=== PATIENT | male | born 2000 | race Caucasian/White ===

== ENCOUNTER 2020-12-27 21:42 | Emergency (ER) | payer OTHER, SELFPAY ==
[2020-12-27 21:45] VITALS: BP 112/60; PULSE 67; RESP 16; TEMP 36.6; O2SAT 98
[2020-12-27 22:05] LABS: Basophils Percent Auto 0.3 % (0.2-1.2); Eosinophils Absolute Auto 0.2 K/mm3 (0-0.3); Eosinophils Percent Auto 2.2 % (0-4.4); Hematocrit 47.1 % (42.0-52.0); Hemoglobin 16.3 g/dL (14.0-18.0); Immature Granulocyte Absolute 0.02 K/mm3 (0.00-0.031); Immature Granulocyte Percent A 0.2 % (0-0.5); Lymphocytes Absolute Auto 1.74 K/mm3 (0.9-3.2); Lymphocytes Percent Auto 18.8 % (18.3-44.2); Mean Corpuscular HGB Conc 34.6 g/dl (32-36); Mean Corpuscular Hemoglobin 29.7 pg (26-34); Mean Corpuscular Volume 85.9 fl (80-100); Mean Platelet Volume 10.1 fl (7.4-10.4); Monocytes Absolute Auto 0.6 K/mm3 (0.1-0.6); Monocytes Percent Auto 6.6 % (2.6-8.5); Neutrophils Absolute Auto 6.7 K/mm3 (1.3-6.7); Neutrophils Percent Auto 71.9 % (45.5-73.1); Platelet Count Result 238 k/mm3 (150-375); Red Blood Count 5.48 M/mm3 (4.6-6.20); Red Cell Distribution Width 11.7 % (11.5-14.5); White Blood Count 9.3 K/mm3 (4.5-10.0)
[2020-12-27 22:16] LABS: Alanine Aminotransferase 23 U/L (4-50); Albumin Level 4.6 g/dL (3.5-5.1); Alkaline Phosphatase 59 U/L (38-126); Anion Gap 8 mmol/L (8-16); Aspartate Amino Transferase 27 U/L (17-59); Bilirubin,Total 0.8 mg/dL (0.2-1.3); Blood Urea Nitrogen 11 mg/dL (9-20); Calcium 9.4 mg/dL (8.4-10.2); Carbon Dioxide 30 mmol/L (22-30); Chloride 103 mmol/L (98-107); Estimated CRCL calculation 103 ml/min; Estimated Glomerular Filt Rate > 60; Glucose 92 mg/dL (75-110); Lipase 59 U/L (23-300); Potassium 3.8 mmol/L (3.4-5.0); Sodium 141 mmol/L (137-145)
[2020-12-27 23:54] LABS: Add Urine Microscopic? YES; Amorphous Sediment Urine Few; Appearance Urine Turbid (Clear); Bilirubin Urine Negative (Negative); Blood Urine Negative (Negative); Color Urine Amber (Yellow); Glucose Urine UA Negative (Negative); Ketones Urine Negative (Negative); Leukocyte Esterase Ur Negative LEU/UL (Negative); Mucus Urine Few /lpf; Nitrate Urine Negative (Negative); Protein Urine 1+ mg/dL (Negative); RBC Urine 0-2 /hpf (0-2); Specific Grav Ur 1.023 (1.001-1.035); WBC Urine 0-3 /hpf
--- NOTE | 2020-12-27 23:56 | ED.GENADULT ---
HPI - General Adult General Chief complaint: Abdominal Pain Stated complaint: abdominal pain Time Seen by Provider: 12/27/20 23:33 Source: patient History of Present Illness HPI narrative: Patient is a 20 y/o male complaining burning epigastric pain starting 4 days ago. He rates his pain as 8/10 when it occurs. His pain radiates to his pain. There is no alleviating or exacerbating factor. His pain is intermittent. He had some vomiting, but no diarrhea. Related Data Allergies Allergy/AdvReac Type Severity Reaction Status Date / Time amoxicillin Allergy Swelling Verified 12/27/20 21:47 of Lip/Tongue/Throat Review of Systems Constitutional: Constitutional: Denies chills, Denies fever(s), Denies headache(s) and Denies weakness Eyes: Eyes: Denies blurry vision ENT: Denies headache(s) and Denies neck pain Cardiovascular: Cardiovascular: Denies chest pain and Denies dyspnea Respiratory: Respiratory: Denies cough and Denies dyspnea Gastrointestinal: Gastrointestinal: Reports abdominal pain, Denies diarrhea, Reports nausea and Reports vomiting Genitourinary: Genitourinary: Denies hematuria and Denies dysuria Musculoskeletal: Musculoskeletal: Denies back pain and Denies neck pain Neurologic: Denies headache(s) and Denies weakness [facility] Social History Social History Gender identity (if verbalized by the patient): Male Exam Const: General: no acute distress and well developed Orientation/consciousness: oriented to person, oriented to place, oriented to time and patient oriented x3 HENMT: Head: normocephalic Ears: external ears normal General nose exam: Normal external nose present Eyes: General: appearance normal, both eyes and all related structures Conjunctivae: conjunctivae normal Neck: Neck: normal visual inspection and full ROM Chest: Chest palpation & inspection: normal inspection of the chest and no tenderness Resp: Effort & Inspection: normal respiratory effort Auscultation: clear to auscultation bilaterally Cardio: Rate: regular rate Rhythm: regular rhythm GI: GI Palp: No abdominal tenderness and Yes Soft to palpation Skin: General skin exam: normal color and turgor normal Neuro: General: oriented to person, oriented to place, oriented to time and patient oriented x3 Cognition (Neuro): normal cognition Extrem: General: normal to inspection, full ROM and no pedal edema Psych: Appearance: grossly normal Mental Status: mental status grossly normal Affect: normal affect Course Reevaluation(s) Reevaluation #1: Rechecked. Patient feels better. He has no abdominal pain at this time. Date: 12/28/20 Time: 01:30 Vital Signs Vital signs: Vital Signs Temperature 36.6 C 12/27/20 21:45 Pulse Rate 67 12/27/20 21:45 Respiratory Rate 16 12/27/20 21:45 Blood Pressure 112/60 12/27/20 21:45 Pulse Oximetry 98 12/27/20 21:45 Temperature 36.4 C 12/28/20 02:27 Pulse Rate 80 12/28/20 02:27 Respiratory Rate 16 12/28/20 02:27 Blood Pressure 110/65 12/28/20 02:27 Pulse Oximetry 100 12/28/20 02:27 Medical Decision Making Vital Signs Vital Signs: Vital Signs Temperature 36.6 C 12/27/20 21:45 Pulse Rate 67 12/27/20 21:45 Respiratory Rate 16 12/27/20 21:45 Blood Pressure 112/60 12/27/20 21:45 Pulse Oximetry 98 12/27/20 21:45 Temperature 36.4 C 12/28/20 02:27 Pulse Rate 80 12/28/20 02:27 Respiratory Rate 16 12/28/20 02:27 Blood Pressure 110/65 12/28/20 02:27 Pulse Oximetry 100 12/28/20 02:27 Lab Data Result diagrams: 12/27/20 21:53 12/27/20 21:53 Labs: Lab Results 12/27/20 12/27/20 12/27/20 Range/Units 21:53 21:53 23:35 WBC 9.3 (4.5-10.0) K/mm3 RBC 5.48 (4.6-6.20) M/mm3 Hgb 16.3 (14.0-18.0) g/dL Hct 47.1 (42.0-52.0) % MCV 85.9 (80-100) fl MCH 29.7 (26-34) pg MCHC 34.6 (32-36) g/dl RDW 11.7
[2020-12-28] MEDS: SODIUM CHLORIDE 0.9% IV 1,000 ML 999 ML IV CONT (00:38)
[2020-12-28] MEDS: ONDANSETRON INJ 4 MG/2 ML VIAL IV PUSH (00:40)
[2020-12-28] MEDS: KETOROLAC 30 MG/ML VIAL (*BKC) IV PUSH (00:40)
[2020-12-28] MEDS: BELLADONNA ALK/PHENOB ELIX 10 ML, MAG HYDROX/ALUMINUM HYD/SIMETH 30 ML, LIDOCAINE HCL 2... PO (00:41)
[2020-12-28 02:27] VITALS: BP 110/65; PULSE 80; RESP 16; TEMP 36.4; O2SAT 100
== END 2020-12-28 02:28 | disposition home or self-care (01) ==
PROVIDERS: Emergency Medicine; Emergency Provider Emergency Medicine; PCP Pediatrics
DX: K29.70 Gastritis, unspecified, without bleeding (principal)
CPT/HCPCS: 36415; 80053; 81001; 83690; 85025; 96361; 96374; 96375; 99284; A9270; J1885; J2405; J7030

== ENCOUNTER 2023-01-04 20:53 | Emergency (ER) | payer OTHER, SELFPAY ==
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
[2023-01-04 20:56] VITALS: BP 142/96; PULSE 98; RESP 18; TEMP 36.8; O2SAT 96
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
[2023-01-04] MEDS: ACETAMINOPHEN 500 MG TABLET 1000 MG PO (21:44)
[2023-01-04 21:45] VITALS: BP 120/77; PULSE 82; RESP 16; O2SAT 98
[2023-01-04 22:00] VITALS: BP 126/87; PULSE 74; RESP 16; O2SAT 96
[2023-01-04 22:15] VITALS: BP 129/88; PULSE 66; RESP 16; O2SAT 96
[2023-01-04 22:45] VITALS: BP 125/97; PULSE 88; RESP 16; O2SAT 98
== END 2023-01-04 22:50 | disposition home or self-care (01) ==
PROVIDERS: Emergency Provider Emergency Medicine; PCP Internal Medicine
DX: S06.0XAA Concussion with loss of consciousness status unknown, initial encounter (principal); V89.2XXA Person injured in unspecified motor-vehicle accident, traffic, initial encounter
CPT/HCPCS: 70450; 99284; A9270; L0140

== ENCOUNTER 2023-07-04 09:58 | Emergency (ER) | payer OTHER, SELFPAY ==
[2023-07-04] VITALS (8 sets, daily range): BP systolic 90–129; BP diastolic 68–88; PULSE 99–112; RESP 16–23; TEMP 36.7; O2SAT 95–99
--- NOTE | ~2023-07-04 | CT_ITS ---
EXAMINATION: CT brain wo con DATE: 07/04/2023 10:45 INDICATION: Altered mental status. Transient alteration of awareness. TECHNIQUE: Computed tomography (CT) of the head was performed without intravenous contrast. The mA wa s adjusted according to patient size. Iterative reconstruction technique was employed. Exam dose: 75 6.67 mGy-cm total exam DLP. COMPARISON: None FINDINGS: No intracranial mass lesion or hemorrhage or cerebrovascular accident. No midline shift or mass effect. Normal ventricular size. Normal minor-white matter differentiation. No skull fracture or bone destruction. The mastoid air cells and included paranasal sinuses are gianni lly developed and aerated. IMPRESSION: No significant abnormality Reviewed, dictated and finalized at Location [facility]. Reviewed, dictated and finalized at location A. IMPRESSION: No significant abnormality
--- NOTE | 2023-07-04 10:06 | ECG_ITS ---
Measurements Intervals [place] Rate: 97 P: 67 TX: 151 QRS: 89 QRSD: 99 T: 68 QT: 340 QTc: 433 Interpretive Statements SINUS RHYTHM POSSIBLE RIGHT VENTRICULAR CONDUCTION DELAY [RSR (QR) IN V1/V2] ST ELEVATION CONSISTENT WITH INJURY, PERICARDITIS, OR EARLY REPOLARIZATION [ST ELEVATION W/O NORMALLY INFLECTED T WAVE] BORDERLINE ECG NO PREVIOUS ECG AVAILABLE FOR COMPARISON Electronically Signed On 07-04-2023 14:45:35 CDT by Higinio Sorensen M.D.
--- NOTE | 2023-07-04 10:20 | PC.NURSE ---
blood glucose 289 at this time
[2023-07-04] MEDS: SODIUM CHLORIDE 0.9% IV 1,000 ML 999 ML IV CONT ×2 (10:25→11:35)
[2023-07-04] MEDS: HALOPERIDOL LACTATE 5 MG/ML VIAL IM (10:25)
[2023-07-04] MEDS: LORazepam INJ (*CRX) 2 MG/ML VIAL IM (10:26)
[2023-07-04 10:30] LABS: Glucose Point of Care 289 mg/dl (65-105)
--- NOTE | 2023-07-04 10:31 | PC.NURSE ---
Pt uncooperative and unable to obtain EKG at this time
[2023-07-04 10:38] LABS: Basophils Absolute Auto 0.1 K/mm3 (0.0-0.1); Basophils Percent Auto 0.2 % (0.2-1.2); Hematocrit 49.1 % (42.0-52.0); Immature Granulocyte Absolute 0.11 K/mm3 (0.00-0.031); Immature Granulocyte Percent A 0.5 % (0-0.5); Lymphocytes Absolute Auto 1.01 K/mm3 (0.9-3.2); Lymphocytes Percent Auto 4.6 % (18.3-44.2); Mean Corpuscular HGB Conc 32.6 g/dl (32-36); Mean Corpuscular Volume 88.9 fl (80-100); Mean Platelet Volume 10.7 fl (7.4-10.4); Monocytes Absolute Auto 0.6 K/mm3 (0.1-0.6); Monocytes Percent Auto 2.6 % (2.6-8.5); Neutrophils Absolute Auto 20.4 K/mm3 (1.3-6.7); Neutrophils Percent Auto 92.1 % (45.5-73.1); Platelet Count Result 333 k/mm3 (150-375); Red Blood Count 5.52 M/mm3 (4.6-6.20); Red Cell Distribution Width 12.4 % (11.5-14.5); White Blood Count 22.1 K/mm3 (4.5-10.0)
--- NOTE | 2023-07-04 10:52 | PC.NURSE ---
Pt A&Ox4. Pt asked for urine sample. states he isn't going to. pt refusing straight cath at this time
[2023-07-04 10:53] LABS: Alanine Aminotransferase 34 U/L (6-50); Albumin Level 5.4 g/dL (3.5-5.1); Alkaline Phosphatase 59 U/L (38-126); Anion Gap 22 mmol/L (8-16); Aspartate Amino Transferase 52 U/L (17-59); Bilirubin,Total 0.9 mg/dL (0.2-1.3); Blood Urea Nitrogen 12 mg/dL (9-20); Calcium 8.9 mg/dL (8.4-10.2); Carbon Dioxide 21 mmol/L (22-30); Chloride 97 mmol/L (98-107); Creatine Kinase 237 U/L (55-170); Estimated CRCL calculation 98 ml/min; Estimated Glomerular Filt Rate > 60; Glucose 267 mg/dL (65-110); Potassium 4.8 mmol/L (3.4-5.0); Sodium 140 mmol/L (137-145)
[2023-07-04 10:54] LABS: Lactic Acid Reflex 7.7 mmol/L (0.7-2.0)
--- NOTE | 2023-07-04 11:31 | PC.NURSE ---
Pt uncooperative at this time. While attempting to get EKG, pt took all cardiac leads off, ripped out IV and states Im done, Im fucking leaving Parents at bedside
--- NOTE | 2023-07-04 11:50 | PC.NURSE ---
Dr Washington spoke with pt and pt laid back down in bed. Pt A&Ox4. Pt stopped answering questions and his sleeping at this time. New IV started and fluids restarted.
[2023-07-04 11:53] LABS: Acetaminophen < 10 ug/mL (10-30); Ethanol < 10 mg/dL (<10); Salicylate < 1.0 mg/dL (2-20)
[2023-07-04 12:48] LABS: Appearance Urine Cloudy (Clear); Bacteria Urine None Seen /hpf; Bilirubin Urine Negative (Negative); Blood Urine Negative (Negative); Color Urine Yellow (Yellow); Glucose Urine UA 3+ mg/dL (Negative); Ketones Urine Trace mg/dL (Negative); Leukocyte Esterase Ur Negative LEU/UL (Negative); Nitrate Urine Negative (Negative); Protein Urine Trace mg/dL (Negative); RBC Urine 0-2 /hpf (0-2); Squamous Epithelial Cell Urine None seen /hpf (Few); Urobilinogen Urine 0.2 mg/dL (<2.0); WBC Urine 0-5 /hpf
[2023-07-04 12:53] LABS: Add Urine Microscopic? YES
[2023-07-04 13:01] LABS: Barbiturate Screen Urine Negative (Negative)
[2023-07-04 13:04] LABS: Cannabinoid Screen Urine Positive (Negative); Cocaine Screen Urine Negative (Negative); Methadone Screen Urine Negative (Negative); Opiate Screen Urine Negative (Negative); Phencyclidine Screen Urine Negative (Negative)
[2023-07-04 13:08] LABS: Amphetamine Screen Urine Negative (Negative); Benzodiazepines Screen Urine Positive (Negative)
[2023-07-04 13:37] LABS: Reflex Lactic Acid Yes or No Add Lactic
[2023-07-04 13:57] LABS: Lactic Acid 0.9 mmol/L (0.7-2.0)
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
== END 2023-07-04 15:20 | disposition home or self-care (01) ==
PROVIDERS: Emergency Provider Preventive Medicine Aerospace Medicine; PCP Internal Medicine
DX: F11.10 Opioid abuse, uncomplicated (principal); T40.2X1A Poisoning by other opioids, accidental (unintentional), initial encounter; E86.0 Dehydration; R11.2 Nausea with vomiting, unspecified
CPT/HCPCS: 36415; 70450; 80053; 80307; 81001; 82550; 82948; 83605; 85025; 93005; 96360; 96361; 96372; 99284; J1630; J2060; J7030

== ENCOUNTER 2024-01-16 22:22 | Emergency (ER) | payer OTHER, SELFPAY ==
[2024-01-16 22:21] VITALS: BP 128/108; PULSE 99; RESP 18; TEMP 36.3; O2SAT 99
[2024-01-16 22:31] VITALS: O2SAT 99
[2024-01-16 22:35] VITALS: BP 131/91; PULSE 93; RESP 20; O2SAT 99
[2024-01-16 22:42] LABS: Glucose Point of Care 218 mg/dl (65-105)
[2024-01-16 22:52] LABS: Basophils Percent Auto 0.2 % (0.2-1.2); Hematocrit 42.3 % (42.0-52.0); Hemoglobin 14.2 g/dL (14.0-18.0); Immature Granulocyte Absolute 0.13 K/mm3 (0.00-0.031); Immature Granulocyte Percent A 0.6 % (0-0.5); Lymphocytes Absolute Auto 0.79 K/mm3 (0.9-3.2); Lymphocytes Percent Auto 3.7 % (18.3-44.2); Mean Corpuscular HGB Conc 33.6 g/dl (32-36); Mean Corpuscular Hemoglobin 29.6 pg (26-34); Mean Corpuscular Volume 88.1 fl (80-100); Mean Platelet Volume 10.6 fl (7.4-10.4); Monocytes Absolute Auto 0.5 K/mm3 (0.1-0.6); Monocytes Percent Auto 2.4 % (2.6-8.5); Neutrophils Absolute Auto 19.9 K/mm3 (1.3-6.7); Neutrophils Percent Auto 93.1 % (45.5-73.1); Platelet Count Result 220 k/mm3 (150-375); Red Cell Distribution Width 12.3 % (11.5-14.5); White Blood Count 21.3 K/mm3 (4.5-10.0)
[2024-01-16 23:05] LABS: Acetaminophen < 10 ug/mL (10-30); Ethanol < 10 mg/dL (<10); Salicylate < 1.0 mg/dL (2-20)
[2024-01-16 23:06] LABS: Alanine Aminotransferase 41 U/L (6-50); Alkaline Phosphatase 49 U/L (38-126); Anion Gap 6 mmol/L (4-12); Aspartate Amino Transferase 51 U/L (17-59); Bilirubin,Total 0.5 mg/dL (0.2-1.3); Blood Urea Nitrogen 12 mg/dL (9-20); Calcium 8.4 mg/dL (8.4-10.2); Carbon Dioxide 31 mmol/L (22-30); Chloride 101 mmol/L (98-107); Estimated CRCL calculation 90 ml/min; Estimated Glomerular Filt Rate > 60; Glucose 230 mg/dL (65-110); Potassium 4.3 mmol/L (3.4-5.0); Sodium 138 mmol/L (137-145)
[2024-01-16 23:35] VITALS: BP 117/85; PULSE 107; RESP 19; O2SAT 97
--- NOTE | 2024-01-16 23:39 | PC.NURSE ---
Pt mother at bedside. Mother states pt has overdosed on fentanyl x2 weeks ago after being sober for 5 months and has been in hospital off and on since. Pt was discharged from hospital this morning and went and bought drugs after. Pt also has known pneumonia and taking abx for it at this time.
--- NOTE | 2024-01-16 23:42 | PC.NURSE ---
care and report given to KYLAH Goodwin. all questions answered.
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
[2024-01-17 00:07] VITALS: BP 123/93; PULSE 102; RESP 18; O2SAT 97
== END 2024-01-17 00:09 | disposition left against medical advice (07) ==
PROVIDERS: Emergency Provider Preventive Medicine Aerospace Medicine; PCP Internal Medicine
DX: T50.901A Poisoning by unspecified drugs, medicaments and biological substances, accidental (unintentional), initial encounter (principal); F41.9 Anxiety disorder, unspecified
CPT/HCPCS: 36415; 80053; 80307; 82948; 85025; 99283

== ENCOUNTER 2024-08-27 20:01 | Emergency (ER) | payer OTHER, SELFPAY ==
[2024-08-27 20:04] VITALS: BP 145/97; PULSE 101; RESP 15; TEMP 36.3; O2SAT 98
--- NOTE | 2024-08-27 20:43 | PC.NURSE ---
pt refused IV and blood work at this time and says i just want Suboxone
--- NOTE | 2024-08-27 21:32 | ED_ITS ---
HPI - General Adult General Chief complaint: Unspecified Stated complaint: help with withdrawal from fentanyl Time Seen by Provider: 08/27/24 20:44 Source: patient Mode of arrival: ambulatory Limitations: no limitations History of Present Illness HPI narrative: Patient presents to the emergency department for Suboxone prescription. Patient has history of fentanyl abuse. Requesting Suboxone prescription as he would like to detox. Related Data Home Medications ?Medication ?Instructions ?Recorded ?Confirmed ?Last Taken ?Type atomoxetine 80 mg capsule 80 mg PO QAM 09/10/23 03/28/24 Unknown History (Strattera) Allergies Allergy/AdvReac Type Severity Reaction Status Date / Time amoxicillin Allergy Swelling Verified 08/27/24 20:02 of Lip/Tongue/Throat Review of Systems Review of Systems: CONSTITUTIONAL: Denies fever GASTROINTESTINAL: Reports abdominal pain, nausea, vomiting PSYCHIATRIC: Reports anxiety All systems reviewed & are unremarkable except as noted in HPI and below PMFSH Past Medical History Medical History Anxiety Fractured nose Mental health disorder Family History Family History Father Cerebrovascular accident Grandparent Lung cancer Grandparent Colon cancer Social History Social History (Updated 08/27/24 @ 21:44 by Lesa Pablo PA-C) Smoking status: Never smoker Alcohol intake: current Alcohol use details: Maybe Socially Substance use: current Substance use type: opiates and prescription drug Do You Feel Safe in your Home?: Yes Lack of Transportation: No Lack of Food: Never True Current Housing: I Have Housing Concerned About Future Housing: No Difficulty Paying Gas/Electric Bills: No Difficulty Paying for Meds: No Currently Unemployed: No Education: Associate Degree Difficulty w/ Childcare or Family Care: No Living arrangements: with family Gender identity (if verbalized by the patient): Male Exam Narrative: GENERAL: Well-appearing, well-nourished, and in no acute distress. HEAD: Normocephalic, atraumatic. EYES: EOMI. CHEST: Clear to auscultation. No respiratory distress. No wheezes rales or rhonchi HEART: Regular rate and rhythm. No murmur heard. Normal peripheral pulses. ABDOMEN: Soft, nondistended EXTREMITIES: Normal range of motion. No edema. SKIN: Warm, dry, no rash. NEURO: No focal deficits. Alert and oriented x3. PSYCH: Normal mood and affect Course Vital Signs Vital signs: Vital Signs Temperature 97.4 F L 08/27/24 20:04 Pulse Rate 101 H 08/27/24 20:04 Respiratory Rate 15 08/27/24 20:04 Blood Pressure 145/97 H 08/27/24 20:04 Pulse Oximetry 98 08/27/24 20:04 Oxygen Delivery Room Air 08/27/24 20:04 Temperature 97.4 F L 08/27/24 20:04 Pulse Rate 101 H 08/27/24 20:04 Respiratory Rate 15 08/27/24 20:04 Blood Pressure 145/97 H 08/27/24 20:04 Pulse Oximetry 98 08/27/24 20:04 Oxygen Delivery Room Air 08/27/24 20:04 Medical Decision Making MDM Narrative Medical decision making narrative: Patient presents to the emergency department for Suboxone prescription. Would like help to detox from Fentanyl abuse. He did not wish to have any blood work or further evaluation. He did not want any help with managing his symptoms at this time. I gave him resources to obtain further help for substance abuse/obtaining Suboxone prescription. He was given warnings to return to the ER Vital Signs Vital Signs: Vital Signs Temperature 97.4 F L 08/27/24 20:04 Pulse Rate 101 H 08/27/24 20:04 Respiratory Rate 15 08/27/24 20:04 Blood Pressure 145/97 H 08/27/24 20:04 Pulse Oximetry 98 08/27/24 20:04 Oxygen Delivery Room Air 08/27/24 20:04 Temperature 97.4 F L 08/27/24 20:04 Pulse Rate 101 H 08/27/24 20:04 Respiratory Rate 15 08/27/24 20:04 Blood Pressure 145/97 H 08/27/24 20:04 Pulse Oximetry 98 08/27/24 20:04 Oxygen Delivery Room Air 08/27/24 20:04 Critical Care Time Critical Care Time Critical Care Time: No Discharge Plan Discharge Clinical Impression: Opioid abuse Patient Disposition: Home, Self-Care Condition: Stable Instructions: Opioid Withdrawal (ED), Opioid Use Disorder (ED) Additional Instructions: Return to the emergency department if you experience fever, chest pain, shortness of breath, abdominal pain with nausea and vomiting, weakness, numbness, or any other symptoms that are concerning to you. Follow up with resources provided Patient Language: Ukrainian Prescriptions: No Action atomoxetine [Strattera] 80 mg capsule 80 mg PO QAM hydroxyzine HCl 50 mg tablet 50 mg PO BID PRN (Reason: anxiety) Qty: 60 0RF Rx Instructions: LAST REFILL UNTIL SEEN trazodone 100 mg tablet 150 mg PO QHS PRN (Reason: insomnia) Qty: 45 5RF Rx Instructions: DUE FOR APPOINTMENT IN SEPTEMBER gabapentin 300 mg capsule 600 mg PO BID Qty: 360 1RF escitalopram oxalate 20 mg tablet 20 mg PO DAILY Qty: 30 3RF Follow-up/Referrals: Claude Wilhelm DO [Primary Care Provider] -
[2024-08-27 21:40] VITALS: BP 134/95; PULSE 90; RESP 20; O2SAT 97
== END 2024-08-27 21:41 | disposition home or self-care (01) ==
PROVIDERS: Emergency Provider Physician Assistant; PCP Internal Medicine
DX: F11.10 Opioid abuse, uncomplicated (principal)
CPT/HCPCS: 99281